=== PATIENT | male | born 1950 | race Caucasian/White ===

== ENCOUNTER 2023-04-15 12:12 | Outpatient (CLI) | payer MEDICARE, SELFPAY ==
[2023-04-15 12:47] LABS: INR 3.3; Prothrombin Time 32.9 Seconds (9.50-12.10)
== END 2023-04-15 12:13 | disposition home or self-care (01) ==
DX: I48.91 Unspecified atrial fibrillation (principal)
CPT/HCPCS: 36415; 85610